=== PATIENT | female | born 1995 | race American Indian/Alaskan Native ===

== ENCOUNTER 2016-09-19 14:57 | Outpatient (CLI) | payer MEDICAID ==
[2016-09-19 15:35] VITALS: BP 119/69
== END 2016-09-19 16:10 | disposition home or self-care (01) ==
LOC: TRG 14:57
PROVIDERS: ATTEND Obstetrics & Gynecology
DX: O47.1 False labor at or after 37 completed weeks of gestation (principal); Z3A.37 37 weeks gestation of pregnancy
CPT/HCPCS: 59025

== ENCOUNTER 2016-10-09 12:58 | Outpatient (CLI) | payer MEDICAID ==
[2016-10-09] MEDS ORDERED: VISTARIL PO PRN (14:10)
== END 2016-10-09 14:30 | disposition home or self-care (01) ==
LOC: TRG 12:58
PROVIDERS: ATTEND Obstetrics & Gynecology
DX: O48.0 Post-term pregnancy (principal); Z3A.40 40 weeks gestation of pregnancy
CPT/HCPCS: 59025; Q0177